=== PATIENT | female | born 1980 | race Two or more races ===

== ENCOUNTER 2024-01-12 21:18 | Inpatient (IN) | payer MEDICAID, OTHER ==
[~2024-01-12] VITALS: Ht 165.1 cm; Wt 81.1 kg
[2024-01-12 23:32] LABS: Urine WBC None Seen /hpf (0 - 5)
[2024-01-12 23:47] LABS: Urine Bacteria FEW /hpf (None Seen); Urine Blood 2+ /uL (Negative); Urine Clarity Clear (Clear); Urine Color Colorless (Yellow); Urine Protein, UAD Negative (Negative); Urine Specific Gravity 1.003 (1.001-1.035); Urine Urobilinogen Normal (Negative); Urine pH 6.5 (5.0-9.0)
[2024-01-13 00:04] LABS: Alanine Aminotransferase 29 U/L (7-40); Albumin 4.3 g/dL (3.2-4.8); Alkaline Phosphatase 100 U/L (46-116); Anion Gap 5 (5-15); Aspartate Aminotransferase 16 U/L (13-40); BUN/Creatinine Ratio 9.8 (10.0-20.0); Blood Urea Nitrogen 8 mg/dL (9-23); Calcium 9.6 mg/dL (8.7-10.4); Carbon Dioxide 27 mmol/L (20-30); Chloride 106 mmol/L (98-107); Glucose 106 mg/dL (74-106); Potassium 4.1 mmol/L (3.5-5.1); Sodium 138 mmol/L (136-145)
[2024-01-13 00:05] LABS: Bilirubin, Total 0.6 mg/dL (0.2-1.0); Total Protein 7.7 g/dL (5.7-8.2)
[2024-01-13 00:31] LABS: Basophils # (auto) 0 10 ^3/uL (0-0.2); Basophils % (auto) 0.5 % (0.0-2.0); Eosinophils # (auto) 0.1 10 ^3/uL (0-0.8); Eosinophils % (auto) 1.6 % (0.0-7.0); Hematocrit 41.9 % (36.0-46.0); Hemoglobin 14.6 g/dL (12.2-16.2); Lymphocytes # (auto) 2.1 10 ^3/uL (0.4-5.4); Lymphocytes % (auto) 27.7 % (10.0-50.0); Mean Corpuscular Hemoglobin 32.3 pg (28.0-32.0); Mean Corpuscular Hgb Conc. 34.8 g/dL (32.0-36.0); Monocytes # (auto) 0.8 10 ^3/uL (0-1.3); Monocytes % (auto) 10.9 % (0.0-12.0); Neutrophils # (auto) 4.5 10 ^3/uL (1.6-8.6); Neutrophils % (auto) 59.3 % (37.0-80.0); Nucleated Red Blood Cells % 0.1 %; Red Cell Distribution Width 13.6 % (11.8-14.3); White Blood Cell 7.6 10^3/uL (4.4-10.8)
[2024-01-13] MEDS: PIPERACILLIN-TAZOB 3.375GM 100 ML IV ONE (03:26)
[2024-01-13 03:30] VITALS: PULSE 59; RESP 12; O2SAT 100
[2024-01-13] MEDS ORDERED: ONDANSETRON HCL 4 MG/2 ML VIAL IV PRN (05:15)
[2024-01-13] MEDS ORDERED: MORPHINE SULFATE INJ 2 MG/ml SYRG IV PRN ×2 (05:15→05:45)
[2024-01-13] MEDS ORDERED: DOCUSATE SOD 100 MG CAP PO PRN (05:45)
[2024-01-13] MEDS ORDERED: ACETAMINOPHEN 325 MG TAB PO PRN (05:45)
[2024-01-13] MEDS ORDERED: NITROGLYCERIN 0.4 MG SL TAB SL PRN (05:45)
[2024-01-13] MEDS: D5W/SOD CHLO 0.9% 1,000 ML IV SCH (05:56)
[2024-01-13 06:17] LABS: Basophils # (auto) 0 10 ^3/uL (0-0.2); Basophils % (auto) 0.6 % (0.0-2.0); Eosinophils # (auto) 0.1 10 ^3/uL (0-0.8); Eosinophils % (auto) 1.8 % (0.0-7.0); Hemoglobin 13.5 g/dL (12.2-16.2); Lymphocytes # (auto) 1.2 10 ^3/uL (0.4-5.4); Lymphocytes % (auto) 23.9 % (10.0-50.0); Mean Corpuscular Hemoglobin 32.4 pg (28.0-32.0); Mean Corpuscular Hgb Conc. 34.6 g/dL (32.0-36.0); Mean Corpuscular Volume 93.7 fL (80.0-100.0); Monocytes # (auto) 0.5 10 ^3/uL (0-1.3); Monocytes % (auto) 10.9 % (0.0-12.0); Neutrophils # (auto) 3.1 10 ^3/uL (1.6-8.6); Neutrophils % (auto) 62.8 % (37.0-80.0); Red Blood Cells 4.16 10^6/uL (4.0-5.20); White Blood Cell 4.9 10^3/uL (4.4-10.8)
[2024-01-13 06:25] LABS: Chloride 106 mmol/L (98-107); Potassium 3.6 mmol/L (3.5-5.1); Sodium 139 mmol/L (136-145)
[2024-01-13 06:26] LABS: Anion Gap 5 (5-15); Calcium 9.4 mg/dL (8.7-10.4); Carbon Dioxide 28 mmol/L (20-30)
[2024-01-13 06:31] LABS: BUN/Creatinine Ratio 7.8 (10.0-20.0); Blood Urea Nitrogen 6 mg/dL (9-23); Glucose 92 mg/dL (74-106)
[2024-01-13 07:45] VITALS: PULSE 62; RESP 12; O2SAT 98
[2024-01-13] MEDS: cefTRIAXone 1GM/50ML D5W 50 ML IV SCH (08:57)
[2024-01-13 12:42] LABS: Partial Thromboplastin Time 26.9 SEC (24.5-34.5); Prothrombin Time 10.6 sec (9.3-11.8)
[2024-01-13] MEDS ORDERED: fentaNYL CITRATE 100 MCG/2 ML VL ONE (14:55)
[2024-01-13] MEDS ORDERED: MIDAZOLAM HCL 2MG/2ML 2ml VIAL (1mg/ml) ONE (14:55)
[2024-01-13] MEDS ORDERED: DexAMETHasone SOD PHOS 10MG/1ML VIAL INJ ONE (14:56)
[2024-01-13] MEDS ORDERED: ROCURONIUM 10MG/ML 10ML VIAL IV ONE (14:56)
[2024-01-13] MEDS ORDERED: PROPOFOL 10 MG/ML 20 ML IV ONE (14:56)
[2024-01-13] MEDS ORDERED: ONDANSETRON HCL 4 MG/2 ML VIAL ONE (14:57)
[2024-01-13] MEDS ORDERED: metroNIDAZOLE 500MG/100ML 100 ML IV ONE (15:09)
[2024-01-13] MEDS ORDERED: ceFAZolin 1GM/50ML 100 ML IV ONE (15:09)
[2024-01-13] MEDS ORDERED: ePHEDrine SULFATE 50 MG/ML AMP ONE (15:50)
[2024-01-13] MEDS ORDERED: SUGAMMADEX 200mg/2ml Vial (100MG/ML) IV ONE (15:53)
[2024-01-13] MEDS ORDERED: HYDROmorphone HCL 2 MG/ML VL/or syr ONE (15:55)
[2024-01-13] MEDS: BUPIVACAINE HCL 0.25% P/F 10 ML VIAL ONE (16:20)
[2024-01-13] MEDS: LIDOCAINE W/ EPINEPHRINE 1% 20ML VIAL ONE (16:21)
[2024-01-13 17:02] VITALS: O2SAT 100
[2024-01-13] MEDS ORDERED: HYDROcodone-ACET 5/325MG TAB PO PRN (17:15)
[2024-01-13] MEDS: HYDROmorphone HCL 2 MG/ML VL/or syr IV PRN (17:30)
[2024-01-13] MEDS: HYDROcodone-ACET 5/325MG TAB PO PRN (18:32)
[2024-01-13 18:47] VITALS: BP 135/75; PULSE 60; RESP 14; TEMP 98.6; O2SAT 96
[2024-01-13 20:00] VITALS: PULSE 62; PULSE 70; RESP 18
[2024-01-13 21:00] VITALS: BP 102/63; PULSE 56; RESP 18; TEMP 97.8; O2SAT 94
[2024-01-14] VITALS (8 sets, daily range): BP systolic 106–146; BP diastolic 58–74; PULSE 45–83; RESP 16–20; TEMP 97.6–98.4; O2SAT 97–99
[2024-01-14 05:55] LABS: Basophils # (auto) 0 10 ^3/uL (0-0.2); Eosinophils # (auto) 0 10 ^3/uL (0-0.8); Hematocrit 39.9 % (36.0-46.0); Hemoglobin 13.7 g/dL (12.2-16.2); Lymphocytes # (auto) 0.6 10 ^3/uL (0.4-5.4); Lymphocytes % (auto) 7.4 % (10.0-50.0); Mean Corpuscular Hemoglobin 32.1 pg (28.0-32.0); Mean Corpuscular Hgb Conc. 34.4 g/dL (32.0-36.0); Mean Corpuscular Volume 93.4 fL (80.0-100.0); Monocytes # (auto) 0.4 10 ^3/uL (0-1.3); Monocytes % (auto) 5.3 % (0.0-12.0); Neutrophils # (auto) 7.1 10 ^3/uL (1.6-8.6); Neutrophils % (auto) 87.3 % (37.0-80.0); Red Blood Cells 4.27 10^6/uL (4.0-5.20); Red Cell Distribution Width 13.6 % (11.8-14.3); White Blood Cell 8.1 10^3/uL (4.4-10.8)
[2024-01-14 06:17] LABS: Alanine Aminotransferase 24 U/L (7-40); Albumin 3.7 g/dL (3.2-4.8); Alkaline Phosphatase 80 U/L (46-116); Anion Gap 3 (5-15); Aspartate Aminotransferase 15 U/L (13-40); BUN/Creatinine Ratio 10.4 (10.0-20.0); Bilirubin, Total 0.5 mg/dL (0.2-1.0); Blood Urea Nitrogen 8 mg/dL (9-23); Calcium 8.9 mg/dL (8.5-10.1); Carbon Dioxide 26 mmol/L (20-30); Chloride 106 mmol/L (98-107); Glucose 185 mg/dL (74-106); Potassium 4.4 mmol/L (3.5-5.1); Sodium 135 mmol/L (136-145); Total Protein 6.7 g/dL (5.7-8.2)
[2024-01-15] VITALS (8 sets, daily range): BP systolic 118–145; BP diastolic 69–85; PULSE 51–80; RESP 16–20; TEMP 98.1–98.8; O2SAT 92–100
[2024-01-15] MEDS: PANTOPRAZOLE 40 MG TAB PO ONE (08:13)
[2024-01-15] MEDS: PANTOPRAZOLE 40 MG TAB PO SCH (11:02)
[2024-01-15 11:05] LABS: Free T4 (Free Thyroxine) 1.72 ng/dL (0.89-1.76)
[2024-01-15 11:06] LABS: Free T3 3.44 pg/mL (2.3-4.2)
[2024-01-15] MEDS: LIDOCAINE 5% TOPICAL PATCH TOP ONE (16:19)
[2024-01-16 05:00] VITALS: BP 137/80; PULSE 58; RESP 17; TEMP 98; O2SAT 98
[2024-01-16 05:58] LABS: Basophils # (auto) 0 10 ^3/uL (0-0.2); Basophils % (auto) 0.8 % (0.0-2.0); Eosinophils # (auto) 0.1 10 ^3/uL (0-0.8); Eosinophils % (auto) 1.7 % (0.0-7.0); Hematocrit 41.8 % (36.0-46.0); Hemoglobin 14.1 g/dL (12.2-16.2); Lymphocytes # (auto) 2.2 10 ^3/uL (0.4-5.4); Lymphocytes % (auto) 38.1 % (10.0-50.0); Mean Corpuscular Hemoglobin 31.8 pg (28.0-32.0); Mean Corpuscular Hgb Conc. 33.8 g/dL (32.0-36.0); Monocytes # (auto) 0.8 10 ^3/uL (0-1.3); Monocytes % (auto) 13.7 % (0.0-12.0); Neutrophils # (auto) 2.7 10 ^3/uL (1.6-8.6); Neutrophils % (auto) 45.7 % (37.0-80.0); Red Blood Cells 4.45 10^6/uL (4.0-5.20); Red Cell Distribution Width 13.6 % (11.8-14.3); White Blood Cell 5.8 10^3/uL (4.4-10.8)
[2024-01-16 08:05] VITALS: PULSE 75; O2SAT 98
[2024-01-16 08:15] VITALS: BP 131/83; PULSE 61; RESP 16; TEMP 98; O2SAT 98
[2024-01-16] MEDS ORDERED: ACET-1881 PO (09:45)
[2024-01-16] MEDS ORDERED: AUG875T PO (09:45)
[2024-01-16] MEDS: LIDOCAINE 5% TOPICAL PATCH TOP SCH (10:35)
== END 2024-01-16 13:05 | disposition home or self-care (01) | DRG 224 ==
LOC: ER 21:18 → TELE 01-13 05:46 → TELE-CENTR 01-13 14:00
PROVIDERS: ADMIT Nurse Practitioner Family; ATTEND Internal Medicine Geriatric Medicine
PROC: 0DNU4ZZ Release Omentum, Percutaneous Endoscopic Approach (ICD-10-PCS; 2024-01-13)
PROC: 0DTJ4ZZ Resection of Appendix, Percutaneous Endoscopic Approach (ICD-10-PCS; principal; 2024-01-13 15:17)
DX: K35.891 Other acute appendicitis without perforation, with gangrene (principal); K66.0 Peritoneal adhesions (postprocedural) (postinfection); R00.1 Bradycardia, unspecified; R42 Dizziness and giddiness; R07.81 Pleurodynia
CPT/HCPCS: 36415; 71045; 80048; 80053; 81001; 84439; 84443; 84481; 84484; 84702; 85025; 85610; 85730; 86850; 86900; 86901; 93005; 93306; G0378; J1100; J2250; J2405; J2543; J2704; J3490; J7042

== ENCOUNTER 2024-01-23 10:59 | Emergency (ER) | payer MEDICAID ==
[~2024-01-23] VITALS: Ht 165.1 cm; Wt 79.3 kg
[~2024-01-23 10:59] MED LIST: ACET-1881 PO; AUG875T PO
[2024-01-23 11:15] VITALS: BP 132/90; PULSE 103; RESP 18; TEMP 98.7; O2SAT 98
[2024-01-23] MEDS ORDERED: SIME1CAP12 PO (13:20)
== END 2024-01-23 13:51 | disposition home or self-care (01) ==
LOC: ER 10:59
DX: R14.3 Flatulence (principal); R14.2 Eructation; R14.1 Gas pain; Z90.49 Acquired absence of other specified parts of digestive tract